=== PATIENT | female | born 2000 | race Two or more races ===

== ENCOUNTER 2025-07-03 08:32 | Outpatient (CLI) | payer MEDICAID, SELFPAY | END 2025-07-03 08:33 | disposition home or self-care (01) | PROVIDERS: PCP Family Medicine; Visit Provider Family Medicine | DX: Z90.3 Acquired absence of stomach [part of] (principal); Z13.6 Encounter for screening for cardiovascular disorders; E53.8 Deficiency of other specified B group vitamins | CPT/HCPCS: 80053; 80061; 82306; 82607; 82728; 82746; T1013 ==